=== PATIENT | female | born 1970 | race African-American/Black ===

== ENCOUNTER 2025-03-01 20:28 | Emergency (ER) | payer OTHER ==
[~2025-03-01] VITALS: Ht 165.1 cm; Wt 121.1 kg
[~2025-03-01 20:28] MED LIST: HYDROCODON-ACE1 EA11 PO; IRBESARTAN-HCT1 EAC1 PO; LOSARTAN POTAS100 MG PO; MELOXICAM7.5 MG PO; METFORMIN HCL500 MG PO; NIFEDIPINE ER30 M1 PO; PROPRANOLOL HCL10 MG PO; PROTONIX20 MG PO
[2025-03-01 20:36] VITALS: PULSE 60; RESP 16; TEMP 98.4
[2025-03-01] MEDS ORDERED: ULTRAM 50MG50 MG PO (21:22)
[2025-03-01] MEDS ORDERED: MELOXICAM7.5 MG PO (21:22)
[2025-03-01] MEDS ORDERED: TYLENOL325 MG PO (21:22)
[2025-03-01] MEDS: DEXAMETHASONE SOD PHOS INJ 4 MG/ML SDV IM ONE (21:29)
[2025-03-01] MEDS: IBUPROFEN 200 MG TAB PO ONE (21:32)
[2025-03-01] MEDS: ACETAMINOPHEN 325 MG TAB PO ONE (21:32)
[2025-03-01 21:45] VITALS: BP 175/89; PULSE 60; RESP 16; TEMP 98.4; O2SAT 100
== END 2025-03-01 21:45 | disposition home or self-care (01) ==
LOC: FSED 20:50
DX: M25.561 Pain in right knee (principal); M25.461 Effusion, right knee; M17.11 Unilateral primary osteoarthritis, right knee; I10 Essential (primary) hypertension; E11.9 Type 2 diabetes mellitus without complications; E66.9 Obesity, unspecified; Z68.41 Body mass index [BMI] 40.0-44.9, adult
CPT/HCPCS: 99284; J1100